=== PATIENT | male | born 1950 | race Caucasian/White ===

== ENCOUNTER 2023-08-15 11:12 | Emergency (ER) | payer OTHER, SELFPAY ==
[2023-08-15 11:12] VITALS: BMI 29.0
[2023-08-15 11:17] VITALS: BP 158/90
[2023-08-15 11:38] VITALS: BP 168/78
--- NOTE | 2023-08-15 11:55 | ED.GENMED ---
History of Present Illness
General
Chief Complaint: Cold/Flu/URI Symptoms
Source: patient
Exam Limitations: none
Time Seen by Provider: 08/15/23 11:38
Nursing documentation reviewed up to this point in time: agreed with
Travel History
Have you had any contact with someone who has COVID-19?: No
Do you have any symptoms of coronavirus? Fever > 100 degrees, chills, cough, shortness of breath, sore throat, loss of taste or smell, muscle aches, or headache?: No
History of Present Illness
History of Present Illness:
Patient presents to ED after fall at home, on an island in his kitchen, shortly prior to arrival. Patient states that he got up this morning with a dry cough and nausea sensation. Patient had breakfast and afterwards started to feel 'sick'.
Patient got up to do the dishes and had 1 vomiting episode. That is when he fell and hit his head. Patient states that he was at his baseline health last night when he went to sleep. Denies recent travel or surgery. Denies recent illness.
Denies sick contact. Denies recent change in medications or diet. Patient unsure about his last tetanus vaccination. Patient denies feeling dizzy or palpitations prior to falling. Denies headache. Denies blurred vision. Denies loss of
sensation or weakness. Denies neck pain. Patient takes 81 mg aspirin daily.
Past History
Past History
ED Past Medical History: HTN, Hypercholesterolemia and Seizures
ED Past Surgical History: None
Social History
Tobacco: Non-smoker
Alcohol: Occasional
Review of Systems
Review of Systems
Allergies reviewed?: Yes
All Other Systems: ROS reviewed and negative except as documented in HPI and ROS
Constitutional: Reports no symptoms
EENT: Reports no symptoms
Respiratory: Reports no symptoms
Cardiac: Reports no symptoms; Denies chest pain, palpitations or syncope
ABD/GI: Reports nausea and vomiting; Denies abdominal pain
Musculoskeletal: Reports no symptoms
Skin: Reports other (Scalp abrasion)
Neurological: Reports no symptoms
Phy Exam
Physical Exam
Physical Exam:
Physical Exam
General: no apparent distress, not acutely ill. afebrile.
Head: superficial abrasion noted over right posterior scalp without active bleeding.
Neck: supple. no meningeal signs. normal posterior pharynx
Heart: tachycardic, no murmur. equal radial pulses.
Lungs: no acute respiratory distress.
Abdomen: normal bowel sounds. not tender.
Neuro: alert and oriented. no focal neurological deficits
Skin: no rash
Psychiatric: well kept. interactive and cooperative
Extremities: no edema. no calf tenderness.
Course
Orders/Labs/Results
Orders:
Orders
08/15/23 11:55
CT Head W/o Iv Contrast Urgent
Comment:
Reason For Exam: trauma to right posterior scalp
Vital Signs
Initial and Last Documented VS:
Initial Vital Signs
Temp Pulse Resp BP Pulse Ox
99.0 F 120 22 158/90 94
08/15/23 11:17 08/15/23 11:17 08/15/23 11:17 08/15/23 11:17 08/15/23 11:17
Last Documented Vital Signs
Temp Pulse Resp BP Pulse Ox
98 F 91 16 151/87 95
08/15/23 13:00 08/15/23 14:18 08/15/23 14:18 08/15/23 14:18 08/15/23 14:18
MDM/Problems Addressed
MDM/Problems Addressed:
CT head: no acute findings.
Superficial abrasion noted - no indication for closure.
Pt with intermittent nonproductive cough - likely URI. Otherwise, patient is afebrile, neurovascularly intact, without any distress, at time of discharge, to the care of his family.
*Critical Care Note
Total Time (30-74mins, 75-104mins- exclusive of procedures): Not Applicable
ED Attending Note
-
Portions of this chart may have been created with voice recognition software.� Occasional wrong word or��sound alike� substitutions may have occurred due to the inherent limitations of voice recognition software.
Discharge Plan
Departure
Patient Disposition: Home (Routine Discharge)
Date of Disposition: 08/15/23
Time of Disposition: 14:12
Patient with high blood pressure during this ER visit?: Yes
Condition: Good
Discharge Problem:
Abrasion of scalp, URI (upper respiratory infection)
Instructions: Viral Upper Respiratory Infection, Adult (DC), Abrasions ED
Prescriptions:
No Action
amlodipine-benazepril 5-20 mg Capsule
2 cap PO DAILY
simvastatin 20 mg Tablet
20 mg PO HS
lamotrigine 100 mg Tablet
100 mg PO BID
sildenafil (pulm.hypertension) 20 mg Tablet
20 mg PO DAILYPRN PRN (Reason: ED)
Referrals:
Michael Nieto DO [Family Provider] -
Activity Restrictions/Additional Instructions:
As discussed, please follow up with your primary care physician with any further concerns.
Interventions
Interventions:
*Risk Screen - Suicide Last Done: 08/15/23 11:17
*General Assessment Last Done: 08/15/23 11:17
*Neglect/Abuse Screening Last Done: 08/15/23 11:17
ED- Fall Risk Assessment Last Done: 08/15/23 14:19
*ED COVID-19 Vaccine History Last Done: 08/15/23 11:17
*Nursing Disposition Last Done: 08/15/23 14:19
ED- Pulmonary Assessment Last Done: 08/15/23 11:38
Discharge Date and Time
Discharge Date/Time: 08/15/23 14:19
Print Language: ZIMBABWEAN
[2023-08-15 13:00] VITALS: BP 149/82
[2023-08-15 14:18] VITALS: BP 151/87
== END 2023-08-15 14:19 | disposition home or self-care (01) ==
LOC: EMR 11:12
PROVIDERS: EMERGENCY PHYSICIAN Emergency Medicine; FAMILY PHYSICIAN Family Medicine
DX: S00.01XA Abrasion of scalp, initial encounter (principal); J06.9 Acute upper respiratory infection, unspecified; R11.2 Nausea with vomiting, unspecified; W18.39XA Other fall on same level, initial encounter; Y92.000 Kitchen of unspecified non-institutional (private) residence as the place of occurrence of the external cause; I10 Essential (primary) hypertension; R56.9 Unspecified convulsions; E78.00 Pure hypercholesterolemia, unspecified; F32.A Depression, unspecified; Z79.82 Long term (current) use of aspirin
CPT/HCPCS: 99284; 70450

== ENCOUNTER 2024-05-13 22:47 | Observation (INO) | payer OTHER, SELFPAY ==
[2024-05-13] VITALS (10 sets, daily range): BP systolic 139–168; BP diastolic 70–112; BMI 30.4
--- NOTE | 2024-05-13 15:33 | ED.GENMED ---
History of Present Illness
General
Chief Complaint: Seizure
Source: patient
Exam Limitations: none
Time Seen by Provider: 05/13/24 15:24
Nursing documentation reviewed up to this point in time: agreed with
History of Present Illness
History of Present Illness:
73-year-old male with past with a history of epilepsy hypertension hyperlipidemia brought by EMS for seizure. Medics report that patient was standing and staring outside for 20 minutes. This was witnessed by neighbor who sat patient down they
called EMS. EMS patient was starting to respond when they got to scene. EMS reports they started to put an IV line in and after the IV was in patient has started with a tonic-clonic seizure. They did give patient 1 of Ativan which did not seem to
decrease symptoms and then administered 1 additional milligram of Ativan. Patient is on lamotrigine for seizures. BS was 170s in the field.
Past History
Past History
ED Past Medical History: HTN, Hypercholesterolemia and Seizures
ED Past Surgical History: None
Social History
Tobacco: Non-smoker
Alcohol: Occasional
Review of Systems
Review of Systems
Allergies reviewed?: Yes
Unable to obtain full review of systems at this time due to: other (post ictal/pt not responding to questions )
All Other Systems: ROS reviewed and negative except as documented in HPI and ROS
Neurological: Reports other (seizure as per medic )
Phy Exam
General Physical Exam
General Presentation: no apparent distress
General age: appears stated age
General Skin: warm and dry
General Habitus: normal
General Mental: alert
General Hydration: appears well hydrated
Cardiovascular Exam
Cardiovascular Exam: tachycardia
Pulmonary Exam
Pulmonary Exam: lungs clear and no respiratory distress
Neurological Exam
Neurological Exam: other (Patient with eyes closed does not respond to name does respond to painful stimuli such as removing EKG stickers off of chest; patient with spontaneous movements; will not follow commands)
Musculoskeletal Exam
Musculoskeletal Exam: full ROM
Skin Exam
Skin Exam: normal color and warm/dry
Course
Orders/Labs/Results
Orders:
Orders
05/13/24 15:31
CT Head W/o Iv Contrast Urgent
Comment:
Reason For Exam: seizure
Cardiac Monitoring- Treatment ONCE
IV Insert/Care/Rem.- Treatment PRN
0.9% Sodium Chloride 1000 ml [Nss] 1,000 ml IV BOLUS
05/13/24 15:33
Electrocardiogram (*1) Stat
Reason for Study: Abdominal Pain
EKG- Treatment ONCE
05/13/24 15:38
Basic Metabolic Panel Urgent
Complete Blood Count/With Diff Urgent
05/13/24 17:00
Troponin I Urgent
05/13/24 17:08
Potassium Urgent
05/13/24 17:16
Urinalysis Reflex To Culture Urgent
Date Specimen was Collected: 05/13/24
Time Specimen was Collected: 17:15
Abnormal Lab Results
05/13/24 05/13/24
15:38 17:16
RBC 4.47 L 10^6/uL
(4.70-6.10)
MCV 98.2 H fL
(80.0-94.0)
MCH 33.3 H pg
(27.0-31.0)
Carbon Dioxide 19 L mmol/L
(22-30)
Glucose 113 H mg/dl
(70-99)
Urine Ketones Trace A
(Negative)
05/13/24 15:38
05/13/24 17:08
Vital Signs
Initial and Last Documented VS:
Initial Vital Signs
BP
146/76
05/13/24 15:17
Last Documented Vital Signs
Temp Pulse Resp BP Pulse Ox
99.3 F 94 19 142/99 89
05/13/24 19:53 05/13/24 21:15 05/13/24 21:15 05/13/24 21:00 05/13/24 20:45
MDM/Problems Addressed
MDM/Problems Addressed:
Neighbor and daughter are here. Neighbor reports she saw patient outside standing and staring holding a shovel the total incident of him staring was about 5-7 minutes not 20 minutes which EMS initially stated.
Daughter reports his neurologist is at [facility] and she believes his last seizure was at least a year ago.
1614: Patient resting sleeping with eyes closed does attempt to respond and attempts to open his eyes when I call his name he has spontaneous movements no seizure activity
1700: Patient waking up family at bedside. Labs reviewed with a normal white count stable hemoglobin negative negative troponin, EKG was mildly tachycardic on initial arrival. Case discussed with ED physician; prior records reviewed. Patient was
here for seizure and it was documented the patient does have a seizure history in 2021. He was evaluated by neurology at that time and it was documented the patient is on lamotrigine.
Patient has been monitored here however unsteady on his feet and remains mildly tachycardic. With ambulation presently patient's heart rate increased to 115 and he was not steady on his feet. He does live with who was concern for fall. Will
admit for continued observation as patient was monitored here hours but continues to not have a fully steady gait and is a fall risk.
Chronic conditions affecting care:
hx of seizure
*Critical Care Note
Total Time (30-74mins, 75-104mins- exclusive of procedures): Not Applicable
ED Attending Note
-
Portions of this chart may have been created with voice recognition software.� Occasional wrong word or��sound alike� substitutions may have occurred due to the inherent limitations of voice recognition software.
Discharge Plan
Departure
Patient Disposition: Admit
Date of Disposition: 05/13/24
Time of Disposition: 21:39
Admit to: Med/Surg
Admit to doctor: hospitalist
Presentation/result/management discussed w/ accepting MD/DO: Hospitalist
Patient with high blood pressure during this ER visit?: Yes
Condition: Fair
Covid-19: Not Applicable
Discharge Problem:
Seizure
Prescriptions:
No Action
amlodipine-benazepril 5-20 mg Capsule
2 cap PO DAILY
simvastatin 20 mg Tablet
20 mg PO HS
lamotrigine 100 mg Tablet
100 mg PO BID
sildenafil (pulm.hypertension) 20 mg Tablet
20 mg PO DAILYPRN PRN (Reason: ED)
Referrals:
Michael Nieto DO [Family Provider] -
Interventions
Interventions:
*Risk Screen - Suicide Last Done: 05/13/24 15:55
*General Assessment Last Done: 05/13/24 15:54
*Neglect/Abuse Screening Last Done: 05/13/24 17:52
ED- Fall Risk Assessment Last Done: 05/13/24 15:55
*ED COVID-19 Vaccine History Last Done: 05/13/24 15:54
ED- Cardiac Assessment Last Done: 05/13/24 15:55
ED- Neurological Assessment Last Done: 05/13/24 15:55
ED- Pulmonary Assessment Last Done: 05/13/24 15:55
Discharge Date and Time
Print Language: SLOVENIAN
[2024-05-13] MEDS: NSS 1000 IV (15:37)
[2024-05-13 16:04] LABS: % Basophils 0.9 % (0-2); % Eosinophils 3.2 % (0-6); % Immature Granulocytes 0.3 % (0-0.5); % Lymphocytes 20.5 % (20.5-51.1); % Monocytes 8.7 % (1.7-9.3); % Neutrophils 66.4 % (42.2-75.2); Absolute Basophils 0.1 10^3/uL (0-0.2); Absolute Eosinophils 0.2 10^3/uL (0-0.7); Absolute Lymphocytes 1.3 10^3/uL (1.2-3.4); Absolute Monocytes 0.6 10^3/uL (0.1-0.6); Absolute Neutrophils 4.2 10^3/uL (1.4-6.5); Hematocrit 43.9 % (39.0-52.0); Hemoglobin 14.9 g/dL (13.0-18.0); Mean Corp Hgb Conc. 33.9 g/dL (33.0-37.0); Mean Corpuscular Hgb 33.3 pg (27.0-31.0); Mean Corpuscular Volume 98.2 fL (80.0-94.0); Mean Platelet Volume 9.7 fL (7.4-10.4); Nucleated Red Blood Cells % 0 % (-); Platelet Count 161 10^3/uL (130-400); Red Blood Cell Count 4.47 10^6/uL (4.70-6.10); Red Cell Dist. Width 13.2 % (11.5-14.5); White Blood Cell Count 6.3 10^3/uL (4.8-10.8)
[2024-05-13 16:16] LABS: Blood Urea Nitrogen 13 mg/dl (9-20); Calcium 9.6 mg/dl (8.4-10.2); Carbon Dioxide 19 mmol/L (22-30); Chloride 101 mmol/L (98-107); Estimated Creatinine Clearance 70 ml/min; Glucose 113 mg/dl (70-99); Sodium 136 mmol/L (135-145); eGFR > 60.00
[2024-05-13 17:35] LABS: Potassium 5.1 mmol/L (3.5-5.1)
[2024-05-13 17:40] LABS: Urine Albumin Trace (Neg - Trace); Urine Bilirubin Negative (Negative); Urine Character Clear (Clear); Urine Color Yellow; Urine Glucose Negative (Negative); Urine Ketone Trace (Negative); Urine Leukocyte Negative (Negative); Urine Nitrite Negative (Negative); Urine Occult Blood Negative (Negative); Urine Specific Gravity 1.015 (<1.030); Urine Urobilinogen Negative (Neg - 1+)
[2024-05-13 17:50] LABS: Troponin I < 0.012 ng/ml
--- NOTE | 2024-05-13 22:08 | HPS.HSE ---
Family Physician
-
Family Physician: Michael Nieto
Chief Complaint
-
Nonconvulsive seizure
History of Present Illness
This is a 73-year-old male was past medical history significant for hypertension and a prior diagnosis of seizure who presents to the emergency department after a seizure-like activity this afternoon.
Basically the description is of staring spells and unresponsiveness that lasted several minutes. Apparently woke up in usual state of health and had no predisposing symptoms. He was clearing some snow over the snowblower. A neighbor walked by and
talk to him and he was not responsive. When family members were called to talk to him he remained unresponsive. He had his eyes open and was just staring. He was able to hold himself up without falling. He remained in the state until EMS
arrived. EMS gave him 2 doses of lorazepam. He arrived in the emergency department somnolent but easily arousable and responsive.
Since being in the ED he has not had any of the nonconvulsive staring episode. However he still remained slightly drowsy and had an unbalanced gait with walking.
Patient reports compliance with his lamotrigine 150 twice daily which he has been on for several years. 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 Workup was negative for any etiology at that time and was
placed on antiepileptic drugs. Ultimately he had been switched over to lamotrigine 4 years ago for well toleration. He had no recent changes in the dosage. He reports that his levels were checked in March and there where in the therapeutic
range. He denies any new medications. Patient does drink alcohol on a nightly basis including a shot of liquor. He says he did not stop drinking recently and he did not increase the amount of his alcohol intake. He has never had withdrawal
episodes in the past.
In the emergency department he was afebrile, blood pressure 142/90 with a pulse of 110. CBC was unremarkable. Electrolytes BUN/creatinine were also within normal range. UA was unremarkable. CT of the head was negative.
Medical History
Past Medical History
Past Medical History: Reports GERD, HTN, Hypercholesterolemia and Seizures
Past Surgical History: Reports Orthopedic (hip surgery)
Social History
Tobacco: Non-smoker
Alcohol: Daily
Drug: None
Personal:
Living: With Family
Employment: Retired
Family History
Family History: Not pertinent
Allergies / Home Medications
Allergies reflects when Allergies were last updated in [facility].
Home Medications with original date entered in [facility]
Allergy/Medication List:
Allergies
Allergy/AdvReac Type Severity Reaction Status Date / Time
No Known Allergies Allergy Verified 05/13/24 15:32
Home Medications
amlodipine 5 mg-benazepril 20 mg capsule 1 cap PO DAILY Blood pressure 02/10/22
lamotrigine 100 mg tablet 100 mg PO BID Seizures 02/10/22
simvastatin 20 mg tablet 20 mg PO HS High cholesterol 02/10/22
aspirin 81 mg chewable tablet 81 mg PO DAILY 05/13/24
hawthorn 500 mg capsule (hawthorn pacheco) 500 mg PO DAILY 05/13/24
ibuprofen 200 mg tablet (Advil) 200 mg PO HS 05/13/24
ketorolac 0.5 % eye drops 1 drp RIGHT EYE TID 05/13/24
lamotrigine 50 mg disintegrating tablet 50 mg PO BID 05/13/24
loratadine 10 mg tablet (Claritin) 10 mg PO DAILY 05/13/24
moxifloxacin 0.5 % eye drops 1 drp RIGHT EYE TID 05/13/24
prednisolone acetate 1 % eye drops,suspension 1 drp RIGHT EYE TID 05/13/24
Review of Systems
-
History Source: Patient and Family
Constitutional: Reports No Symptoms
EENT: Reports No Symptoms
Respiratory: Reports No Symptoms
Cardiac: Reports No Symptoms
Abdomen/GI: Reports No Symptoms
: Reports No Symptoms
Musculoskeletal: Reports No Symptoms
Skin: Reports No Symptoms
Neurological: Reports No Symptoms
Endocrine: Reports No Symptoms
Hematologic/Lymphatic: Reports No Symptoms
Psych: Reports No Symptoms
Physical Exam
Vital Signs
Vital Signs
Temp Pulse Resp BP Pulse Ox
99.3 F 110 26 142/99 94
05/13/24 19:53 05/13/24 21:30 05/13/24 21:30 05/13/24 21:00 05/13/24 21:30
Physical Exam
General: Well Developed, Well Nourished, No Apparent Distress and Comfortable
HEENT: NormoCephalic, Anicteric, Moist mucous membranes and Atraumatic
Respiratory: Clear
Cardiac: S1/S2 and Regular Rhythm
Breast: Deferred by me
GI: Soft, Non Tender, Non Distended and Normal Bowel Sounds
Rectal: Deferred by Provider
Genito-urinary: Deferred by me
Musculoskeletal: No Clubbing, No Cyanosis and No Edema
Skin: Warm
Neuro: AO x 3, No Motor Deficits, Cranial Nerves Intact and No Sensory Deficits
Hematologic/Lymphatic: No Lymphadenopathy
Psych: Calm
Laboratory Results
-
05/13/24 15:38
05/13/24 17:08
Laboratory Results
Total Bilirubin Cancelled 05/13/24 15:38
AST Cancelled 05/13/24 15:38
ALT Cancelled 05/13/24 15:38
Alkaline Phosphatase Cancelled 05/13/24 15:38
Troponin I < 0.012 ng/ml 05/13/24 17:00
Data Reviewed
-
CT Scan: Report Reviewed by me
Lab Data: Labs Reviewed by me
Old Records: Reviewed
Impression/Plan
-
IMPRESSION:
73-year-old with past medical history significant for hypertension and seizures who presents to the emergency department with a nonconvulsive seizure episode lasting several minutes. He is currently alert and oriented and without any focal
neurological deficits. He is minimally somnolent and had a slight ataxia on gait. No infectious inflammatory or ischemic provoking episodes of seizure. No medications. Likely breakthrough seizure. The patient has had a nonconvulsive
seizure-like episode for which she was seen at [facility] a few years ago similar to this episode.
PLAN:
Breakthrough Seizure - No abnormal findings but remains slightly sleepy and gait still off.
- admit to med/surg observation
- continue lamotrigine 150 bid
- PT evaluation
- neurology consult
HTN/cardiovasc
- continue amlodipine 5/ benazepril 10
- aspirin 81 daily
- continue statin
DVT PPX - SCDs
Code status - full code
[2024-05-13] MEDS: LAMICTAL 50 MG PO (22:33)
[2024-05-13] MEDS: MAALOX 30 ML PO (22:33)
[2024-05-13] MEDS: LAMICTAL 100 MG PO (22:33)
[2024-05-13] MEDS: ANESTHETIC LOZENGE 1 LOZENGE PO (23:59)
[2024-05-14] VITALS (7 sets, daily range): BP systolic 90–152; BP diastolic 66–85
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
[2024-05-14] MEDS: LAMICTAL 100 MG PO (08:54)
[2024-05-14] MEDS: LOW STRENGTH ASPIRIN 81 MG PO (08:54)
[2024-05-14] MEDS: LOTREL 5 MG/20 MG 1 CAPSULE PO (08:55)
[2024-05-14] MEDS: LAMICTAL 50 MG PO (08:55)
[2024-05-14] MEDS: CLARITIN 10 MG PO (08:56)
--- NOTE | 2024-05-14 09:00 | W.PN.HOSP.TC ---
Today's Communication/Plan
-
Discharge after neurology clearance
PT evaluation
Assessment / Plan
Assessment / Plan
Breakthrough Seizure
Mild TME -postictal state -resolved
- CT head without any abnormality
- Patient mentation is back to normal
- continue lamotrigine 150 bid
- PT evaluation
- neurology consult
- Patient has been following with primary neurologist and has been seizure-free for approximately 5-6 years
HTN/cardiovasc
- continue amlodipine 5/ benazepril 10
- aspirin 81 daily
- continue statin
DVT PPX - SCDs
Code status - full code
Anticipated Discharge: Today
Subjective/Interval History
-
Date of Service: May 14, 2024
Sitting comfortably in bed
Patient able to walk around without any balance issues
No reported seizure episodes overnight
Objective Data
-
Vital Signs:
Vital Signs
Temp Pulse Resp BP Pulse Ox
98.5 F 82 22 152/77 96
05/14/24 03:53 05/14/24 08:55 05/14/24 07:00 05/14/24 08:55 05/14/24 03:09
I&O
05/13/24 05/14/24 05/15/24
06:59 06:59 06:59
Output Total 1000 / 1000
Balance -1000 / -1000
Review of Systems
-
Respiratory: Reports No Symptoms
Cardiac: Reports No Symptoms
Abdomen/GI: Reports No Symptoms
Physical Exam
-
General: No Apparent Distress and Comfortable
HEENT: Negative Oxygen
Respiratory: Clear to Auscultation
Cardiac: Regular Rhythm and S1/S2; Negative Murmur or Rub
GI: Soft, Nontender and Nondistended
Musculoskeletal: No Edema
Neuro: Awake, Alert, Oriented, No Motor Deficits and Nonfocal/Grossly Intact
Psych: Calm
[2024-05-14 09:35] LABS: Amphetamines Negative (Negative); Barbiturates Negative (Negative); Benzodiazepines Positive (Negative); Buprenorphine Negative (Negative); Cocaine Negative (Negative); Marijuana Negative (Negative); Methadone Negative (Negative); Methamphetamines Negative (Negative); Opiates Negative (Negative); Phencyclidine Negative (Negative); Tricyclic Antidepressants Negative (Negative)
[2024-05-14 09:36] LABS: Creatine Phosphokinase 107 U/L (55-170); Magnesium 2.2 mg/dl (1.6-2.3)
[2024-05-14 10:04] LABS: TSH Reflex To Free T4 2.24 uIU/ml (0.47-4.68)
[2024-05-14 10:33] LABS: Fentanyl, Urine Negative (Negative)
[2024-05-14] MEDS: VITAMIN B1 100 MG PO (12:31)
--- NOTE | 2024-05-14 13:19 | CM ---
CM reviewed medical records. Plan for discharge to home with no needs.
PLAN: Home no needs.
--- NOTE | 2024-05-14 14:19 | W.DCSUMMARY ---
Discharge Summary
Discharge Data
Date of Admission: 05/13/24
Date of Discharge: 05/14/24
-
Pending Results: No
Hospital Course
Discharging Physician : Dr Maximiliano Cabrera
Disposition : Home
Primary care physician : Dr Michael Nieto
Principal Discharge diagnosis :
Breakthrough seizure
Mild toxic metabolic encephalopathy/postictal state
Chronic Discharge diagnosis :
Essential hypertension
Seasonal allergies
Hyperlipidemia
Alcohol use disorder
Hospital Course :
Patient is a 73-year-old male with above-mentioned past medical history was brought in by EMS after patient was found down in driveway. Patient was apparently staring blankly into space. Patient does have history of tonic-clonic seizure and was
felt to having a breakthrough seizure. Patient was given Ativan by EMS. In ER patient was noted to be in postictal state and somewhat encephalopathic. CT head was done and was negative for any acute abnormality. Patient is compliant with his
home regimen of Lamictal , level check of which is pending at time of discharge. Neurology evaluated patient and recommended for patient to continue follow-up with primary neurologist. Patient also started on thiamine per neurology recommendation.
Patient advised against driving chronic 6 months and will require neurology clearance before can do so. Patient was discharged home.
Important imaging findings :
None
Procedure findings :
None
Discharge Plan
-
Patient Disposition: Home (Routine Discharge)
Discharge Diagnosis/Procedures: Breakthrough seizure
Condition: Fair
Diet: Regular
Activity: As tolerated
Driving Restrictions: No driving
Bathing Restrictions: OK to Shower
Activity Restrictions/Additional Instructions:
Please follow up with your primary neurologist in 2 weeks.
Referrals:
Michael Nieto, DO [Family Provider] - in one week
Prescriptions:
New
thiamine HCl (vitamin B1) 100 mg tablet
100 mg PO DAILY Qty: 30 2RF
Continued
amlodipine-benazepril 5-20 mg Capsule
1 cap PO DAILY
simvastatin 20 mg Tablet
20 mg PO HS
lamotrigine 100 mg Tablet
100 mg PO BID
ketorolac 0.5 % Drops
1 drp RIGHT EYE TID
Patient Comments:
05/13/24: Has stopped 1 eye drop, not sure which one.
prednisolone acetate 1 % Drops,Suspension
1 drp RIGHT EYE TID
Patient Comments:
05/13/24: Has stopped 1 eye drop, not sure which one.
ibuprofen [Advil] 200 mg Tablet
200 mg PO HS
aspirin 81 mg Tablet,Chewable
81 mg PO DAILY
hawthorn pacheco 500 mg Capsule
500 mg PO DAILY
loratadine [Claritin] 10 mg Tablet
10 mg PO DAILY
moxifloxacin 0.5 % Drops
1 drp RIGHT EYE TID
Patient Comments:
05/13/24: Has stopped 1 eye drop, not sure which one.
lamotrigine 50 mg Tablet,Disintegrating
50 mg PO BID
Discharge Orders:
Discharge Patient (As Directed); Ordered 05/14/24
Ordered By: Maximiliano Cabrera
Discharge Date and Time
Discharge Date/Time: 05/14/24 12:39
Print Language: BELIZEAN
[2024-05-15 13:59] LABS: Lamotrigine (Lamictal) 6.5 ug/mL (3.0-15.0)
== END 2024-05-14 12:39 | disposition home or self-care (01) ==
LOC: ED 22:47
PROVIDERS: Nurse Practitioner; ADMITTING PHYSICIAN Internal Medicine; ATTENDING PHYSICIAN Hospitalist; CONSULT PHYSICIAN Psychiatry & Neurology Neurology; EMERGENCY PHYSICIAN Emergency Medicine; FAMILY PHYSICIAN Family Medicine
DX: G40.109 Localization-related (focal) (partial) symptomatic epilepsy and epileptic syndromes with simple partial seizures, not intractable, without status epilepticus (principal); R00.0 Tachycardia, unspecified; I44.4 Left anterior fascicular block; G92.8 Other toxic encephalopathy; J30.2 Other seasonal allergic rhinitis; R10.9 Unspecified abdominal pain; E78.00 Pure hypercholesterolemia, unspecified; I10 Essential (primary) hypertension; K21.9 Gastro-esophageal reflux disease without esophagitis; I67.81 Acute cerebrovascular insufficiency; F10.20 Alcohol dependence, uncomplicated; R40.0 Somnolence; R27.0 Ataxia, unspecified; Z60.2 Problems related to living alone; Z79.82 Long term (current) use of aspirin
CPT/HCPCS: 70450; 80048; 80175; 80306; 80307; 81003; 82550; 83735; 84132; 84443; 84484; 85025; 93005; 96360; 99285; G0378

== ENCOUNTER 2024-07-09 19:34 | Emergency (ER) | payer OTHER, SELFPAY ==
[2024-07-09 19:40] VITALS: BP 186/65
--- NOTE | 2024-07-09 19:49 | ED.GENMED ---
History of Present Illness
General
Chief Complaint: Seizure
Time Seen by Provider: 07/09/24 19:49
History of Present Illness
History of Present Illness:
TIME OF INITIAL ENCOUNTER: 7:50 PM
HPI: At around 7:15pm, was sitting w/ female friend -I spoke to Una over the phone ([phone]) she was talking to him and he was not responding, then had about GTC sz activity for 'a while' (can't say how long). Drinks alcohol daily. She
says he is compliant w/ his seizure meds. He admits to drinking alcohol on daily basis.
EXAM:
GENERAL: Well appearing in no distress
HEENT: Moist oral mucosa
CARDIOVASCULAR: No murmurs, tachycardic heart rate, regular rhythm, No chest wall tenderness
PULMONARY: No respiratory distress, breath sounds are clear and equal
ABDOMEN: Soft with no peritoneal signs, no tenderness
NEUROLOGIC: Good strength all extremities, no coordination deficits
PSYCHIATRIC: The patient appears somewhat postictal and confused, he cannot recall the events of today but has better recollection of the events from 2 months ago
EXTREMITIES: Nontender, no edema, moves all extremities equally
SKIN: Mild facial hyperemia
NUMBER AND COMPLEXITY OF PROBLEMS ADDRESSED AT THE ENCOUNTER
� Chronic conditions affecting care: Seizure disorder, drinks alcohol daily
� Acute Exacerbation and/or Progression of Chronic Illness: This is an acute but recurring problem
� Differential Diagnosis includes: Breakthrough seizure, alcohol withdrawal seizure, hypoglycemia
AMOUNT AND/OR COMPLEXITY OF DATA TO BE REVIEWED AND ANALYZED
� I performed an independent evaluation of and my interpretation is:
EKG: Sinus 119, normal intervals
CT:
X-rays:
Laboratory Studies: White count and hemoglobin levels are normal, bicarb is slightly low at 21, alcohol is undetected
Other:
� Review of other/old records: I reviewed the discharge summary from 2 months ago
� Clinical information was obtained by an independent historian: I spoke to girlfriend and daughter at bedside
� Prescriptions/Medications Considered but not given:
� Further testing considered but not performed: Considered CT imaging of the brain however the patient just had a CT 2 months ago with similar presentation and was more severe at that time
RISK OF COMPLICATIONS AND/OR MORBIDITY OR MORTALITY OF PATIENT MANAGEMENT
� Social determinants of health affecting care: Lives at home
� Discussion with other providers: I spoke neurologist at [facility] he increase Lamictal to 200 mg twice daily.
� Escalation of care including admission/observation vs risk of discharge considered: We did give a dose of benzo and this did help his heart rate. His girlfriend indicated that he did have some alcohol this evening making
alcohol withdrawal seizure less likely but he was tachycardic. Alcohol level 0. I emphasized the need to the patient that he cannot drive and I also notified the girlfriend of this as well. I filled out the [employer] form.
ANY OTHER UPDATES:
8:50 PM: No worsening or any new symptoms. Tachycardia has improved. I encouraged him to decrease alcohol intake. Heart rate closer to 100 at time of discharge.
Past History
Past History
ED Past Medical History: HTN, Hypercholesterolemia and Seizures
ED Past Surgical History: None
Social History
Tobacco: Non-smoker
Alcohol: Occasional
Phy Exam
Physical Exam
Physical Exam:
See HPI
Course
Orders/Labs/Results
Orders:
Orders
07/09/24 19:38
Electrocardiogram (*1) Urgent
Reason for Study: Tachycardia
07/09/24 19:39
EKG- Treatment ONCE
Alcohol Urgent
Complete Blood Count/With Diff Urgent
Comprehensive Metabolic Panel Urgent
07/09/24 19:54
Add On- LAB Urgent
Tests Added?: alcohol level
07/09/24 20:02
Lamotrigine [Lamictal] 150 mg PO NOW STA
Lorazepam [Ativan] 1 mg IV NOW STA
07/09/24 20:08
0.9% Sodium Chloride 1000 ml [Nss] 1,000 ml IV BOLUS
07/09/24 20:17
Lamotrigine [Lamictal] 50 mg PO NOW STA
Abnormal Lab Results
07/09/24 07/09/24
19:39 20:01
RBC 4.55 L 10^6/uL
(4.70-6.10)
MCV 97.8 H fL
(80.0-94.0)
MCH 32.7 H pg
(27.0-31.0)
Carbon Dioxide 21 L mmol/L
(22-30)
Glucose 167 H mg/dl
(70-99)
Calcium 10.6 H mg/dl
(8.4-10.2)
POC Glucose 164 H mg/dl
(70-99)
07/09/24 19:39
07/09/24 19:39
Vital Signs
Initial and Last Documented VS:
Initial Vital Signs
Pulse Resp
119 21
07/09/24 19:38 07/09/24 19:38
Last Documented Vital Signs
Temp Pulse Resp BP Pulse Ox
36.8 C 102 19 168/89 95
07/09/24 19:40 07/09/24 20:45 07/09/24 20:45 07/09/24 20:00 07/09/24 20:45
*Critical Care Note
Total Time (30-74mins, 75-104mins- exclusive of procedures): Not Applicable
ED Attending Note
-
Portions of this chart may have been created with voice recognition software.� Occasional wrong word or��sound alike� substitutions may have occurred due to the inherent limitations of voice recognition software.
Discharge Plan
Departure
Patient Disposition: Home (Routine Discharge)
Date of Disposition: 07/09/24
Time of Disposition: 21:13
Patient with high blood pressure during this ER visit?: Yes
Discharge Problem:
Seizure
Instructions: Seizures, Adult (DC), BLOOD PRESSURE
Prescriptions:
New
lamotrigine [Lamictal] 200 mg tablet
200 mg PO BID Qty: 60 0RF
No Action
amlodipine-benazepril 5-20 mg Capsule
1 cap PO DAILY
simvastatin 20 mg Tablet
20 mg PO HS
lamotrigine 100 mg Tablet
100 mg PO BID
ketorolac 0.5 % Drops
1 drp RIGHT EYE TID
Patient Comments:
05/13/24: Has stopped 1 eye drop, not sure which one.
prednisolone acetate 1 % Drops,Suspension
1 drp RIGHT EYE TID
Patient Comments:
05/13/24: Has stopped 1 eye drop, not sure which one.
ibuprofen [Advil] 200 mg Tablet
200 mg PO HS
aspirin 81 mg Tablet,Chewable
81 mg PO DAILY
hawthorn pacheco 500 mg Capsule
500 mg PO DAILY
loratadine [Claritin] 10 mg Tablet
10 mg PO DAILY
moxifloxacin 0.5 % Drops
1 drp RIGHT EYE TID
Patient Comments:
05/13/24: Has stopped 1 eye drop, not sure which one.
lamotrigine 50 mg Tablet,Disintegrating
50 mg PO BID
thiamine HCl (vitamin B1) 100 mg tablet
100 mg PO DAILY Qty: 30 2RF
Referrals:
UNKNOWN - PT DOES,NOT KNOW [Family Provider] -
Activity Restrictions/Additional Instructions:
I spoke to a neurologist covering for Dr. Ahmadi at [place]. They want you to increase the Lamictal to 200 mg twice daily. I am sending a prescription for this to your pharmacy. I strongly encourage you to decrease alcohol intake. No driving.
Interventions
Interventions:
*Risk Screen - Suicide Last Done: 07/09/24 19:40
*General Assessment Last Done: 07/09/24 19:40
*Neglect/Abuse Screening Last Done: 07/09/24 19:40
*ED COVID-19 Vaccine History Last Done: 07/09/24 19:40
ED- Cardiac Assessment Last Done: 07/09/24 19:45
ED- Neurological Assessment Last Done: 07/09/24 19:45
ED- Pulmonary Assessment Last Done: 07/09/24 19:45
Discharge Date and Time
Print Language: [place]
[2024-07-09 19:53] LABS: % Basophils 0.8 % (0-2); % Eosinophils 2.1 % (0-6); % Immature Granulocytes 0.2 % (0-0.5); % Monocytes 8.3 % (1.7-9.3); % Neutrophils 62.6 % (42.2-75.2); Absolute Basophils 0.1 10^3/uL (0-0.2); Absolute Eosinophils 0.1 10^3/uL (0-0.7); Absolute Lymphocytes 1.6 10^3/uL (1.2-3.4); Absolute Monocytes 0.5 10^3/uL (0.1-0.6); Absolute Neutrophils 3.9 10^3/uL (1.4-6.5); Hematocrit 44.5 % (39.0-52.0); Hemoglobin 14.9 g/dL (13.0-18.0); Mean Corp Hgb Conc. 33.5 g/dL (33.0-37.0); Mean Corpuscular Hgb 32.7 pg (27.0-31.0); Mean Corpuscular Volume 97.8 fL (80.0-94.0); Mean Platelet Volume 9.1 fL (7.4-10.4); Nucleated Red Blood Cells % 0 % (-); Platelet Count 168 10^3/uL (130-400); Red Blood Cell Count 4.55 10^6/uL (4.70-6.10); Red Cell Dist. Width 13.2 % (11.5-14.5); White Blood Cell Count 6.3 10^3/uL (4.8-10.8)
[2024-07-09 20:00] VITALS: BP 168/89
[2024-07-09 20:02] LABS: Glucose - Point of Care 164 mg/dl (70-99)
[2024-07-09 20:07] LABS: ALT (SGPT) 32 U/L (0-50); AST (SGOT) 32 U/L (17-59); Albumin 4.8 g/dl (3.5-5.0); Alkaline Phosphatase 62 U/L (38-126); Blood Urea Nitrogen 15 mg/dl (9-20); Calcium 10.6 mg/dl (8.4-10.2); Carbon Dioxide 21 mmol/L (22-30); Chloride 100 mmol/L (98-107); Glucose 167 mg/dl (70-99); Potassium 4.1 mmol/L (3.5-5.1); Sodium 136 mmol/L (135-145); Total Bilirubin 0.7 mg/dl (0.2-1.3); Total Protein 7.1 g/dl (6.3-8.2); eGFR > 60.00
[2024-07-09] MEDS: LAMICTAL 150 MG PO (20:07)
[2024-07-09] MEDS: ATIVAN 1 MG IV (20:07)
[2024-07-09 20:11] LABS: Alcohol None Detected
[2024-07-09] MEDS: NSS 1000 IV (20:11)
[2024-07-09] MEDS: LAMICTAL 50 MG PO (20:24)
[2024-07-09 21:00] VITALS: BP 153/74
== END 2024-07-09 21:53 | disposition home or self-care (01) ==
LOC: EMR 19:34
PROVIDERS: EMERGENCY PHYSICIAN Emergency Medicine; FAMILY PHYSICIAN Family Medicine
DX: G40.909 Epilepsy, unspecified, not intractable, without status epilepticus (principal); E78.00 Pure hypercholesterolemia, unspecified; I10 Essential (primary) hypertension; R00.0 Tachycardia, unspecified; Z79.899 Other long term (current) drug therapy; F10.90 Alcohol use, unspecified, uncomplicated
CPT/HCPCS: 99284; 96374; 96361; 80053; 82077; 82962; 85025; 93005

== ENCOUNTER 2025-04-02 16:28 | Emergency (ER) | payer OTHER, SELFPAY ==
[2025-04-02 16:33] VITALS: BP 181/82
[2025-04-02 16:44] LABS: Hematocrit 41.9 % (39.0-52.0); Hemoglobin 14.5 g/dL (13.0-18.0); Mean Corp Hgb Conc. 34.6 g/dL (33.0-37.0); Mean Corpuscular Volume 93.7 fL (80.0-94.0); Nucleated Red Blood Cells % 0 % (-); Platelet Count 158 10^3/uL (130-400); Red Cell Dist. Width 13.2 % (11.5-14.5)
[2025-04-02] MEDS: ATIVAN 2 MG IV (16:46)
[2025-04-02 17:00] VITALS: BP 144/72
[2025-04-02 17:15] LABS: ALT (SGPT) 21 U/L (0-50); AST (SGOT) 29 U/L (17-59); Albumin 4.9 g/dl (3.5-5.0); Alkaline Phosphatase 58 U/L (38-126); Blood Urea Nitrogen 13 mg/dl (9-20); Calcium 10.0 mg/dl (8.4-10.2); Carbon Dioxide 19 mmol/L (22-30); Chloride 99 mmol/L (98-107); Glucose 148 mg/dl (70-99); Potassium 4.3 mmol/L (3.5-5.1); Sodium 131 mmol/L (135-145); Total Protein 7.7 g/dl (6.3-8.2); eGFR > 60.00
[2025-04-02 18:00] VITALS: BP 146/81
--- NOTE | 2025-04-02 18:03 | ED.GENMED ---
History of Present Illness
General
Chief Complaint: Seizure
Time Seen by Provider: 04/02/25 18:03
History of Present Illness
History of Present Illness:
FOCUSED PAST MEDICAL HISTORY
- Seizures, high blood pressure, alcohol use
REVIEW OF OLD RECORDS
- I saw this patient in July 2024 also with a seizure. At that time he was also drinking alcohol. At that time I spoke to [facility] neurologist who recommended increasing Lamictal to 200 mg twice daily.
Note:
CHIEF COMPLAINT(S)
Concern for seizure activity.
HISTORY OF PRESENT ILLNESS
The patient is a 74-year-old male with a history of seizures, currently managed on lamotrigine at a dose of 200 mg twice daily. The patient reports a mild episode consisting of what is presumed to be a seizure, although he did not lose
consciousness. This episode occurred following the consumption of a martini the previous night. The patient inquired about the possibility of an alcohol-induced seizure. He denies frequent or excessive alcohol use. His last known seizure activity
was reported several months ago, with no incidents in the past six months until today. He recently regained his drivers license following a seizure-free period. During todays episode, no noticeable seizure activity was directly observed by others,
and there were no reported incontinence or tongue bites. He described the episode as a 'focal seizure,' where he typically recovers within five to 15 minutes. The patient expressed frustration regarding interventions following his recovery from a
seizure. Current heart rate measures 97 beats per minute.
PAST MEDICAL AND SURIGICAL HISTORY
History of seizures.
SOCIAL HISTORY
The patient admits to occasional alcohol consumption, with the most recent intake being a martini last night. He denies excessive drinking habits.
MEDICATIONS
Lamotrigine 200 mg, twice daily.
PHYSICAL EXAM
General: Alert, no acute distress.
Skin: Warm, dry.
Head: Normocephalic, atraumatic.
Neck: Supple, trachea midline.
Eye, ears, nose, mouth and throat: Oral mucosa moist, no tongue bite zapata noted.
Cardiovascular: Normal peripheral perfusion, No edema; current heart rate 97 beats per minute.
Respiratory: Respirations are non-labored.
Gastrointestinal: Abdomen nondistended.
Back: Normal range of motion, Normal alignment.
Musculoskeletal: Normal range of motion, normal strength.
Neurological: Alert and oriented to person, place, time, and situation, No focal neurological deficit observed.
Psychiatric: Cooperative, appropriate mood & affect. The patient does have some difficulty explaining what medications that he is supposed to be taking
PROBLEM LIST
- Acute: Seizure activity
- Chronic: History of seizures
PLAN
1. Evaluate the need for adjustment in lamotrigine dosage after consultation with the neurologist, Dr. Ahmadi at [facility].
2. Consider the impact of alcohol intake on seizure activity and advise accordingly.
3. Confirm no immediate further intervention is required unless advised by neurological consultation.
4. Maintain communication with the patients neurologist to determine the best course of action and review any necessary restrictions including driving privileges.
DIFFERENTIAL DIAGNOSIS
The Differential Diagnosis includes, in no particular order, and is not limited to:
1. Alcohol-related seizure
2. Epilepsy
3. Medication non-compliance
4. Metabolic disturbance
5. Stroke or transient ischemic attack
6. Cardiac arrhythmia
7. Brain lesion
8. Infection
9. Anxiety or stress-induced event
10. Syncope
Disposition:
SUMMARY OF ENCOUNTER
The patient, a 74-year-old male with a history of seizures currently managed on lamotrigine (Lamictal), presented to the emergency department due to concern for potential seizure activity earlier in the day. The episode was possibly a focal seizure,
but the patient did not lose consciousness, and there were no external observations of seizure activity or physical symptoms such as incontinence or tongue bites. A history of occasional alcohol consumption was noted, with intake reported the
previous night. The patient expressed concern over seizure activity potentially induced by alcohol. Contact was made with the patients neurologist, Dr. Can, who recommended an adjustment in the lamotrigine dosage from 200 mg twice daily to 250 mg
twice daily. A lamotrigine level was drawn, and the patient was advised to follow up with his neurologist.
DISPOSITION
The patient is to follow up with his neurologist.
ASSESSMENT
The patient experienced a suspected breakthrough seizure likely influenced by recent alcohol intake, although no clear seizure activity was observed.
MANAGEMENT OF THE PATIENTS CARE WAS DISCUSSED WITH
Dr. Can, neurologist at [facility], who recommended adjustment of lamotrigine dosage.
PLAN
Increase lamotrigine dosage from 200 mg twice daily to 250 mg twice daily as advised by the neurologist. The patient is to contact his neurologist on Monday for further follow-up.
PATIENT EDUCATION AND COUNSELING
The patient was educated on the potential impact of alcohol on seizure activity and advised to follow up with his neurologist as planned.
FOLLOW-UP INSTRUCTIONS
The patient is instructed to call his neurologist on Monday to discuss further management based on the new dosing and pending lab results.
MEDICATION RECONCILIATION
Prescription for lamotrigine increased to 250 mg twice daily as per neurologist�s recommendation.
MEDICAL DECISION MAKING
-Number and Complexity of Problems Addressed: Chronic conditions affecting care include history of seizures. Differential diagnosis considered alcohol-related seizure, epilepsy, medication non-compliance, and metabolic disturbances.
-Data:
Category 1
- Lamotrigine level was drawn and pending review.
Category 3
- Discussion with neurologist Dr. Can regarding management and medication adjustment.
-Risk:
Prescription medication management was modified based on neurologist�s recommendation.
DIAGNOSIS
Breakthrough seizure, ICD-10 code G40.909.
EKG
- Sinus 105, left axis deviation, nonspecific ST abnormality
LABS
- Alcohol undetected, bicarb 19, CBC unremarkable
UPDATE
- I spoke to his significant other, Una over the phone
- The patient appears to be somewhat of an unreliable historian and is given me 3 different dosing regimens of his Lamictal
- I spoke to Dr. Bishop with [facility] who initially recommended increasing the Lamictal by 50 mg however given the patient inability to clearly tell me what he is on we will hold off
- Lamictal level pending
- Given the associated alcohol use, and initial tachycardia, he was given benzos upon arrival and has remained seizure-free
- I also spoke to the daughter over the phone prior to discharge
- [employer] form completed and sent
Past History
Past History
ED Past Medical History: HTN, Hypercholesterolemia and Seizures
ED Past Surgical History: None
Social History
Tobacco: Non-smoker
Alcohol: Occasional
Phy Exam
Physical Exam
Physical Exam:
See HPI
Course
Orders/Labs/Results
Orders:
Orders
04/02/25 16:29
Electrocardiogram (*1) Urgent
Reason for Study: Other
Other Reason for Exam: seizure
04/02/25 16:30
EKG- Treatment ONCE
04/02/25 16:32
Alcohol Urgent
Complete Blood Count/With Diff Urgent
Comprehensive Metabolic Panel Urgent
04/02/25 16:43
Lorazepam [Ativan] 2 mg .ROUTE .STK-MED ONE
04/02/25 16:45
Lorazepam [Ativan] 2 mg IV NOW STA
04/02/25 19:00
Lamotrigine (Lamictal) [S] Urgent
Abnormal Lab Results
04/02/25
16:32
RBC 4.47 L 10^6/uL
(4.70-6.10)
MCH 32.4 H pg
(27.0-31.0)
Absolute Monos (auto) 0.8 H 10^3/uL
(0.1-0.6)
Lymphocytes % 18.7 L %
(20.5-51.1)
Sodium 131 L mmol/L
(135-145)
Carbon Dioxide 19 L mmol/L
(22-30)
Glucose 148 H mg/dl
(70-99)
04/02/25 16:32
04/02/25 16:32
Vital Signs
Initial and Last Documented VS:
Initial Vital Signs
Temp Pulse Resp BP Pulse Ox
37.0 C 113 15 181/82 97
04/02/25 16:33 04/02/25 16:33 04/02/25 16:33 04/02/25 16:33 04/02/25 16:33
Last Documented Vital Signs
Temp Pulse Resp BP Pulse Ox
37.0 C 96 13 146/81 96
04/02/25 16:33 04/02/25 18:15 04/02/25 18:15 04/02/25 18:00 04/02/25 18:05
*Pulse Oximetry
SaO2: 96
Oxygen Mode of Delivery: Room air
Patient hypoxic: no
*Critical Care Note
Total Time (30-74mins, 75-104mins- exclusive of procedures): Not Applicable
ED Attending Note
-
Portions of this chart may have been created with voice recognition software.� Occasional wrong word or��sound alike� substitutions may have occurred due to the inherent limitations of voice recognition software.
Discharge Plan
Departure
Instructions: Syncope (Fainting) (DC)
Prescriptions:
No Action
amlodipine-benazepril 5-20 mg Capsule
1 cap PO DAILY
simvastatin 20 mg Tablet
20 mg PO HS
lamotrigine 100 mg Tablet
100 mg PO BID
ketorolac 0.5 % Drops
1 drp RIGHT EYE TID
Patient Comments:
05/13/24: Has stopped 1 eye drop, not sure which one.
prednisolone acetate 1 % Drops,Suspension
1 drp RIGHT EYE TID
Patient Comments:
05/13/24: Has stopped 1 eye drop, not sure which one.
ibuprofen [Advil] 200 mg Tablet
200 mg PO HS
aspirin 81 mg Tablet,Chewable
81 mg PO DAILY
hawthorn pacheco 500 mg Capsule
500 mg PO DAILY
loratadine [Claritin] 10 mg Tablet
10 mg PO DAILY
moxifloxacin 0.5 % Drops
1 drp RIGHT EYE TID
Patient Comments:
05/13/24: Has stopped 1 eye drop, not sure which one.
lamotrigine 50 mg Tablet,Disintegrating
50 mg PO BID
thiamine HCl (vitamin B1) 100 mg tablet
100 mg PO DAILY Qty: 30 2RF
lamotrigine [Lamictal] 200 mg tablet
200 mg PO BID Qty: 60 0RF
Referrals:
Michael Nieto DO [Family Provider, Family Practice]
Interventions
Interventions:
*Risk Screen - Suicide Last Done: 04/02/25 16:33
*General Assessment Last Done: 04/02/25 16:33
*Neglect/Abuse Screening Last Done: 04/02/25 16:33
*ED- Fall Risk Assessment Last Done: 04/02/25 16:33
*ED COVID-19 Vaccine History Last Done: 04/02/25 16:33
*ED Influenza Vaccine History Last Done: 04/02/25 16:33
ED- Cardiac Assessment Last Done: 04/02/25 16:33
ED- Neurological Assessment Last Done: 04/02/25 16:33
ED- Pulmonary Assessment Last Done: 04/02/25 16:33
Discharge Date and Time
Print Language: [id number]
[2025-04-02 19:00] VITALS: BP 161/85
== END 2025-04-02 21:34 | disposition home or self-care (01) ==
LOC: EMR 16:28
PROVIDERS: EMERGENCY PHYSICIAN Emergency Medicine; FAMILY PHYSICIAN Family Medicine
DX: R56.9 Unspecified convulsions (principal); I10 Essential (primary) hypertension; E78.00 Pure hypercholesterolemia, unspecified; Z79.899 Other long term (current) drug therapy
CPT/HCPCS: 96374; 99284; 80053; 80175; 82077; 85025; 93005